=== PATIENT | female | born 1955 | race Caucasian/White ===

== ENCOUNTER 2018-09-07 12:26 | Emergency (ER) | payer MEDICAID, OTHER ==
[2018-09-07 12:38] VITALS: BP 169/116
[2018-09-07] MEDS ORDERED: NS 1,000 ML IV ONE (13:34)
--- NOTE | 2018-09-07 13:36 | EDPHY ---
H & P Stated Complaint: Tinicity c ataxia and vision changes x2wks. Time Seen by Provider: 09/07/18 13:21 HPI/ROS: CHIEF COMPLAINT: Vertigo, tinnitus in blurry vision HISTORY OF PRESENT ILLNESS: The patient is a 62-year-old female with a history of migraines who states that for the last 2 weeks she has had intermittent vertigo and tinnitus in her head. She cannot lateralize it to a year. She also has intermittent headaches globally. She also also had blurry vision which is been constant. A got gradually worse 2 weeks ago and has been present ever since. She states that she can hardly see the clock face or read the top line on the eye chart. She denies any trauma. She denies any fevers. She states that this did start soon after several of her grand kids were diagnosed with influenza and she had a few days of fever cough etc. She denies any focal weakness or numbness in her extremities. No bowel or bladder abnormalities. No abdominal pain. No chest pain or shortness of breath. She denies having the tinnitus, headache or vertigo currently. The last episode was last night and lasted for about an hour. Severity: Moderate Modifying factors: Fluctuates without any specific cause REVIEW OF SYSTEMS: Constitutional: denies: chills, fever, recent illness, recent injury EENTM: See HPI Respiratory: denies: cough, shortness of breath Cardiac: denies: chest pain, irregular heart rate, lightheadedness, palpitations Gastrointestinal/Abdominal: denies: abdominal pain, diarrhea, nausea, vomiting, blood streaked stools Genitourinary: denies: dysuria, frequency, hematuria, pain Musculoskeletal: denies: joint pain, muscle pain Skin: denies: lesions, rash, jaundice, bruising Neurological: See HPI Hematologic/Lymphatic: denies: blood clots, easy bleeding, easy bruising Immunologic/allergic: denies: HIV/AIDS, transplant 10 systems reviewed and negative except as noted EXAM: GENERAL: Well-appearing, well-nourished and in no acute distress. HEAD: Atraumatic, normocephalic. EYES: Pupils equal round and reactive to light, extraocular movements intact, sclera anicteric, conjunctiva are normal. No nystagmus. Patient cannot participate in visual acuities and states that she can't really even see the sign. ENT: TMs normal, nares patent, oropharynx clear without exudates. Moist mucous membranes. NECK: Normal range of motion, supple without lymphadenopathy or JVD. LUNGS: Breath sounds clear to auscultation bilaterally and equal. No wheezes rales or rhonchi. HEART: Regular rate and rhythm without murmurs, rubs or gallops. ABDOMEN: Soft, nontender, normoactive bowel sounds. No guarding, no rebound. No masses appreciated. BACK: No CVA tenderness, no spinal tenderness, step-offs or deformities EXTREMITIES: Normal range of motion, no pitting or edema. No clubbing or cyanosis. NEUROLOGICAL: Cranial nerves II through XII grossly intact. Normal speech, normal gait. 5/5 strength, normal movement in all extremities, normal sensation , normal reflexes no pronator drift. Normal sensation in extremities. Normal [id number]. Normal ambulation heel to toe. PSYCH: Normal mood, normal affect. SKIN: Warm, dry, normal turgor, no visible rashes or lesions. Source: Patient - Personal History Current Tetanus/Diphtheria Vaccine: Unsure - Medical/Surgical History Hx Asthma: No Hx Chronic Respiratory Disease: No Hx Diabetes: No Hx Cardiac Disease: No Hx Renal Disease: No Hx Cirrhosis: No Hx Alcoholism: No Hx HIV/AIDS: No Hx Splenectomy or Spleen Trauma: No Other PMH: skin cancer lt ear, hep c, migraines - Family History Significant Family History: No pertinent family hx - Social History Smoking Status: Heavy smoker Alcohol Use: Occasionally Drug Use: Marijuana Constitutional: Initial Vital Signs Temperature (C) 36.5 C 09/07/18 12:35 Heart Rate 87 09/07/18 12:35 Respiratory Rate 18 09/07/18 12:35 Blood Pressure 169/116 H 09/07/18 12:35 O2 Sat (%) 95 09/07/18 12:35 O2 Delivery Mode Room Air Allergies/Adverse Reactions: No Known Allergies Allergy (Unverified 09/07/18 12:35) Home Medications: Medication Instructions Recorded Meclizine HCl [Meclizine HCl 25 mg 25 mg PO BID #20 tab 09/07/18 (RX,OTC)] Medical Decision Making - Diagnostics EKG Interpretation: An EKG obtained and was read and documented in trace view. Please see trace view for full reading and report. Sinus rhythm, no acute ischemic changes Imaging Results: Imaging Impressions Brain MRI 09/07/18 13:35 Impression: 1. Mild cerebral atrophy. 2. No acute infarct, acute hemorrhage, hydrocephalus, mass effect, or herniation. 3. Multiple nonspecific hyperintense T2/FLAIR signal abnormalities in the white matter of bilateral cerebral hemispheres. Differential diagnosis includes moderate microvascular ischemic gliosis, versus less likely postinfectious/postinflammatory sequela, especially involving the left frontal lobe. Findings and recommendations discussed with Emergency Department physician, Gordon Gross M.D., at 1503 hours on September 07, 2018. Final report concurs with initial preliminary interpretation. Imaging: Discussed imaging studies w/ hand inserter operator Radiologist ED Course/Re-evaluation: 3:15 p.m. discussed the MRI and lab work with patient. She states that she is feeling slightly better. She does not have any trouble seeing well enough to walk around the department but states she has trouble reading signs etc. Currently no tinnitus or headache. I have paged Neurology for follow-up and possibly ophtho or ENT. 3:30 p.m. I spoke with Dr. Matt who suggest Ophthalmology follow-up 1st and can follow up with her for symptoms do not resolve. I then spoke with Dr. Carpenter from Ophthalmology who was made an appointment with her tomorrow. Differential Diagnosis: Partial list of the Differential diagnosis considered include but were not limited to; Meniere's disease, lab with itis, otitis media, the cerumen impaction, multiple sclerosis and although unlikely based on the history and physical exam, I also considered CVA, mass, infection. I discussed these differential diagnoses and the plan with the patient as well as the usual and expected course. The patient understands that the diagnosis is provisional and that in medicine we are not always correct and that further workup is often warranted. Usual and customary warnings were given. All of the patient's questions were answered. The patient was instructed to return to the emergency department should the symptoms at all worsen or return, otherwise to followup with the physician as we discussed. - Data Points Laboratory Results: Laboratory Results 09/07/18 13:17 09/07/18 13:17 09/07/18 09/07/18 13:17 13:17 WBC 9.20 10^3/uL 10^3/uL (3.80-9.50) RBC 5.99 10^6/uL H 10^6/uL (4.18-5.33) Hgb 17.2 g/dL H g/dL (12.6-16.3) Hct 50.8 % H % (38.0-47.0) MCV 84.8 fL fL (81.5-99.8) MCH 28.7 pg pg (27.9-34.1) MCHC 33.9 g/dL g/dL (32.4-36.7) RDW 12.6 % % (11.5-15.2) Plt Count 220 10^3/uL 10^3/uL (150-400) MPV 11.9 fL H fL (8.7-11.7) Neut % (Auto) 55.1 % % (39.3-74.2) Lymph % (Auto) 33.8 % % (15.0-45.0) Tate % (Auto) 8.4 % % (4.5-13.0) Eos % (Auto) 1.5 % % (0.6-7.6) Baso % (Auto) 0.8 % % (0.3-1.7) Nucleat RBC Rel Count 0.0 % % (0.0-0.2) Absolute Neuts (auto) 5.07 10^3/uL 10^3/uL (1.70-6.50) Absolute Lymphs (auto) 3.11 10^3/uL H 10^3/uL (1.00-3.00) Absolute Monos (auto) 0.77 10^3/uL 10^3/uL (0.30-0.80) Absolute Eos (auto) 0.14 10^3/uL 10^3/uL (0.03-0.40) Absolute Basos (auto) 0.07 10^3/uL 10^3/uL (0.02-0.10) Absolute Nucleated RBC 0.00 10^3/uL 10^3/uL (0-0.01) Immature Gran % 0.4 % % (0.0-1.1) Immature Gran # 0.04 10^3/uL 10^3/uL (0.00-0.10) Sodium 138 mEq/L mEq/L (135-145) Potassium 4.4 mEq/L mEq/L (3.5-5.2) Chloride 107 mEq/L mEq/L (97-110) Carbon Dioxide 24 mEq/l mEq/l (22-31) Anion Gap 7 mEq/L mEq/L (6-14) BUN 18 mg/dL mg/dL (7-23) Creatinine 0.7 mg/dL mg/dL (0.6-1.0) Estimated GFR > 60 Glucose 131 mg/dL H mg/dL (70-100) Calcium 9.3 mg/dL mg/dL (8.5-10.4) Medications Given: Discontinued Medications Sodium Chloride (Ns) 1,000 mls @ 0 mls/hr IV ONCE ONE; Wide Open PRN Reason: Protocol Stop: 09/07/18 13:35 Last Admin: 09/07/18 13:50 Dose: 1,000 mls Departure - Departure Disposition: Home, Routine, Self-Care Clinical Impression: Vertigo, Blurry vision, Generalized headaches Tinnitus Qualifiers: Laterality: bilateral Qualified Code(s): H93.13 - Tinnitus, bilateral Condition: Fair Instructions: Vertigo (ED), Acute Headache (ED), Blurred Vision (ED), Tinnitus (ED) Referrals: NONE *PRIMARY CARE P,. [Primary Care Provider] - As per Instructions Dk Matt MD [Medical Doctor] - 5-7 days, if not improved Zaida Glover MD [Medical Doctor] - As per Instructions Gera Carpenter [Medical Doctor] - 1 day without fail Prescriptions: Meclizine HCl [Meclizine HCl 25 mg (RX,OTC)] 25 mg PO BID #20 tab
--- NOTE | 2018-09-07 13:44 | CPEKG ---
Test Reason : OPEN Blood Pressure : / mmHG Vent. Rate : 083 BPM Atrial Rate : 083 BPM P-R Int : 150 ms QRS Dur : 076 ms QT Int : 400 ms P-R-T Axes : 066 -14 049 degrees QTc Int : 470 ms Sinus rhythm Confirmed by Gordon Gross ([id number]) on 09/07/2018 1:44:10 PM Referred By: PHYSICIAN ED Confirmed By:Gordon Gross
[2018-09-07 13:48] LABS: PLATELET COUNT 220 10^3/uL (150-400)
== END 2018-09-07 14:30 | disposition home or self-care (01) ==
DX: R42 Dizziness and giddiness (principal); R51 Headache; H93.13 Tinnitus, bilateral; H53.8 Other visual disturbances; Z85.828 Personal history of other malignant neoplasm of skin
CPT/HCPCS: 70551-PN